=== PATIENT | male | born 1985 | race Caucasian/White ===

== ENCOUNTER 2020-09-17 14:46 | Emergency (ER) | payer OTHER ==
[2020-09-17] MEDS ORDERED: EPIPEN 2-P0.3 MG/0.3 INJ (16:01)
[2020-09-17] MEDS ORDERED: PREDNISONE 20 M20 MG PO (16:01)
[2020-09-17] MEDS ORDERED: PEPCID20 MG PO (16:01)
[2020-09-17] MEDS ORDERED: PHENERGAN 25 MG25 M1 PO (16:01)
== END 2020-09-17 16:08 | disposition home or self-care (01) ==
LOC: ER1 14:46
DX: T63.441A Toxic effect of venom of bees, accidental (unintentional), initial encounter (principal)
CPT/HCPCS: 99281